=== PATIENT | female | born 1955 | race Caucasian/White ===

== ENCOUNTER → 2017-12-07 08:21 | Outpatient (CLI) | payer MEDICAID, SELFPAY ==
[2017-12-07 10:54] LABS: AST(SGOT) 19 U/L (15-37); Alanine Aminotransfer ALT/SGPT 32 U/L (13-56); Albumin, Serum 4.1 g/dL (3.2-5.0); Alkaline Phosphatase 92 U/L (45-117); Bilirubin, Direct 0.13 mg/dL (0.00-0.30); Cholesterol 202 mg/dL (200); Globulin 3.4 g/dL (2.2-4.2); High Density Lipoprotein 62 mg/dL; Protein, Total 7.5 g/dL (6.4-8.2); Triglycerides 102 mg/dL; Very Low Density Lipoprotein 20 mg/dL (5-40)
== END ==
PROVIDERS: Family Provider Family Medicine; PCP Family Medicine; Visit Provider Physician Assistant Medical
DX: E78.5 Hyperlipidemia, unspecified (principal); Z79.899 Other long term (current) drug therapy
CPT/HCPCS: 36415; 80061; 80076

== ENCOUNTER → 2017-12-20 16:29 | Outpatient (CLI) | payer MEDICAID, SELFPAY ==
[2017-12-20 17:56] LABS: Absolute Lymphocyte Count 2.59 X10^3/ul (0.83-4.51); Absolute Neutrophil Count 5.3 X10^3/uL (2.0-7.7); Basophil# 0.04 X10^3/uL; Basophil% 0.5 % (0-1); Eosinophil# 0.28 X10^3/uL; Eosinophils% 3.2 % (0-5); Hematocrit 38.7 % (37-47); Hemoglobin 12.4 g/dl (12.0-15.0); Lymphocyte # 2.59 X10^3/ul (4.0); Lymphocyte % 29.3 % (19-41); Mean Corpuscular Volume 93.7 fL (81-99); Mean Platelet Vol. 10.1 fl (6.2-12.0); Monocyte# 0.67 X10^3/uL; Monocyte% 7.6 % (0-10); Neutrophil # 5.26 X10^3/uL (2.7-7.7); Neutrophil % 59.3 % (47-70); Platelet Count 248 K/mm3 (150-450); RBC Distribution Width CV 13.9 % (11.6-14.6); RBC Distribution Width SD 47.7 fl (35.1-43.9); Red Blood Count 4.13 M/mm3 (4.2-5.4); White Blood Count 8.9 K/mm3 (4.4-11.0)
[2017-12-20 17:57] LABS: POSITIVE COUNT NO; POSITIVE DIFFERENTIAL NO; POSITIVE MORPHOLOGY NO
[2017-12-20 18:46] LABS: Hemoglobin A1c 5.7 % (4.2-6.3)
[2017-12-20 19:12] LABS: Anion Gap 8 (5-15); BUN 13 mg/dL (7-18); BUN/Creat Ratio 16.5 RATIO (10-20); Chloride 108 mmol/L (98-107); Creatinine, Serum 0.79 mg/dL (0.55-1.02); EST Glomerular Filtration Rate 79 mL/min (>60); Est Glom Filt Rate - Afr Amer 95 mL/min (>60); Glucose 97 mg/dL (74-106); Potassium 4.3 mmol/L (3.5-5.1); Sodium Level 142 mmol/L (136-145); Vitamin D,25 Hydroxy 25.2 ng/mL (19.95-100.01)
== END ==
PROVIDERS: Family Provider Family Medicine; PCP Family Medicine; Visit Provider Family Medicine
DX: I10 Essential (primary) hypertension (principal); R73.01 Impaired fasting glucose; E55.9 Vitamin D deficiency, unspecified
CPT/HCPCS: 36415; 80048; 82306; 83036; 84443; 85025

== ENCOUNTER → 2018-08-11 08:49 | Outpatient (CLI) | payer MEDICAID, SELFPAY ==
--- NOTE | 2018-08-11 09:03 | BI_ITS ---
MAMMOGRAPHY - BILATERAL SCREENING 3-D RICHARD SYNTHESIS REASON FOR EXAM: Female, 63 years old. Bilateral Screening 3-D tomosynthesis PERTINENT HISTORY: Remote breast aspirations. 10 pound loss. No significant family history given. TECHNIQUE: 2-D mammograms and 3-D Richard synthesis of the breast (s) were performed. CAD was performed. COMPARISON: 08/19/2014, 03/08/2010. FINDINGS: The breast composition is for extremely dense which lowers the sensitivity of mammography. Scattered benign appearing calcifications are again seen. No dense spiculated dominant masses or suspicious microcalcification cluster are identified. No architectural distortion, asymmetric density, adenopathy, skin thickening or nipple retraction identified. There has been no significant change since the most recent prior study. BI/SCREENING MAMM (CAD), BILAT IMPRESSION: No mammographic sign of malignancy. Routine yearly mammograms recommended. ASSESSMENT CATEGORY: BIRADS Category 2: Benign. A letter regarding these results will be sent to the patient by the facility within 30 days. FOLLOW UP RECOMMENDATION: Yearly follow up mammogram recommended. (A) Negative mammographic results should not deter biopsy as a palpable lesion if present should be followed on clinical grounds and biopsy performed if clinically persistent for 3 months or increasing size. Approximately 10% of breast cancers are not detected by mammography. A normal mammogram should not delay biopsy of a clinically suspicious abnormality. Dense breast tissue mainstream neoplasm. Electronically Signed: Jonnie Rey, at 18:57 EDT Tel , Service support ,
== END ==
PROVIDERS: Family Provider Family Medicine; PCP Family Medicine; Visit Provider Family Medicine
DX: Z12.31 Encounter for screening mammogram for malignant neoplasm of breast (principal)
CPT/HCPCS: 77063; 77067

== ENCOUNTER 2018-08-20 05:51 | Day surgery (SDC) | payer MEDICAID, SELFPAY ==
--- NOTE | 2018-08-20 | COLBX_PTH ---
PATIENT: DAVIS YODER LOC: EN U#:[id number] AGE/SX: 63/F ROOM: RE08/20/[address]: Dr. Luis Luciano MD : 1955 BED: DIS: 08/20/2018 SPEC #: [id number] RECD: 08/20/18 14:25 STATUS: STEFFEN VALENTINA #: [id number] WENDY: 08/20/18 00:[address]: Luis Luciano DEPT: SURGICAL PATHOLOGY RECD BY: Jn Boston ENTERED: 08/20/18 14:25 SP TYPE: COLON BX OTHR DR: Dr. Ruben Ricks MD Tissues: Sigmoid colon biopsy Procedures: Surgery Specimen Level IV HEADER OPERATION: Colonoscopy (MAC) PRE-OP DIAGNOSIS: Screening TISSUE SUBMITTED: Sigmoid colon polyp MICROSCOPIC DIAGNOSIS Sigmoid colon polyp, biopsy: Tubular adenoma. AM:keena 08/21/18 MICROSCOPIC DESCRIPTION Slides are reviewed. GROSS DESCRIPTION Received in fixative is one container labeled with the patient's name and designated sigmoid colon polyp. The specimen consists of a piece of woods-pink polyp measuring 0.3 x 0.3 x 0.2 cm. The specimen is totally submitted in one cassette. / SJ:keena 08/20/18 TC:5 CPT: 02584
[2018-08-20 06:12] VITALS: BP 145/77; PULSE 65; RESP 16; TEMP 36.5; O2SAT 99; BMI 24.1
[2018-08-20 07:25] VITALS: BP 116/68; BP 145/77; PULSE 60; RESP 16; TEMP 36.4; O2SAT 100
--- NOTE | 2018-08-20 07:26 | OP.ENDO_ITS ---
Patient Name: Diana Gr Procedure Date: 08/20/2018 6:41 AM Date of : 1955 Age: 63 Procedure: Colonoscopy Indications: Screening for colorectal malignant neoplasm Providers: Luis Luciano MD Referring MD: Luis Luciano MD Medicines: See the Anesthesia note for documentation of the administered medications Patient Profile: Last Colonoscopy: none. The patient's first colonoscopy is today. Complications: No immediate complications. Procedure: Pre-Anesthesia Assessment: - Prior to the procedure, a History and Physical was performed, and patient medications and allergies were reviewed. The patient's tolerance of previous anesthesia was also reviewed. The risks and benefits of the procedure and the sedation options and risks were discussed with the patient. All questions were answered, and informed consent was obtained. Prior Anticoagulants: The patient has taken aspirin, last dose was 7 days prior to procedure. ASA Grade Assessment: III - A patient with severe systemic disease. After reviewing the risks and benefits, the patient was deemed in satisfactory condition to undergo the procedure. After I obtained informed consent, the scope was passed under direct vision. Throughout the procedure, the patient's blood pressure, pulse, and oxygen saturations were monitored continuously. The adult colonoscope was introduced through the anus and advanced to the cecum, identified by appendiceal orifice and ileocecal valve. The colonoscopy was performed without difficulty. The patient tolerated the procedure well. The quality of the bowel preparation was good. Scope In: 7:06:32 AM Scope Withdrawal Time 0 hours 8 minutes 46 seconds Scope Out: 7:20:40 AM Total Procedure Duration Time 0 hours 14 minutes 8 seconds Findings: The perianal and digital rectal examinations were normal. A 5 mm polyp was found in the sigmoid colon. The polyp was sessile. The polyp was removed with a hot snare. Resection and retrieval were complete. The exam was otherwise without abnormality. Impression: - One 5 mm polyp in the sigmoid colon, removed with a hot snare. Resected and retrieved. - The examination was otherwise normal. Recommendation: - Discharge patient to home. - Resume previous diet. - Continue present medications. - Await pathology results. - Repeat colonoscopy in 3 years for surveillance. - Return to my office in 1 week. Procedure Code(s): --- Professional --- 31076, Colonoscopy, flexible; with removal of tumor(s), polyp(s), or other lesion(s) by snare technique Diagnosis Code(s): --- Professional --- Z12.11, Encounter for screening for malignant neoplasm of colon D12.5, Benign neoplasm of sigmoid colon CPT copyright 2017 [employer]. All rights reserved. The codes documented in this report are preliminary and upon grocery worker review may be revised to meet current compliance requirements. MD Luis Donaldson MD 08/20/2018 7:25:32 AM This report has been signed electronically. Number of Addenda: 0 Note Initiated On: 08/20/2018 6:41 AM
--- NOTE | 2018-08-20 07:27 | HP.PCM_ITS ---
Problem List (1) Screen for colon cancer Status: Acute History of Present Illness Date of Admission: 08/20/18 The patient is a 63 year old F who presents for screening colonoscopy. Past Medical History Past Medical History (Chronic Problems): Chronic Problems (Last Reviewed 06/08/18 @ 09:16 by Luis Luciano MD) Arteriosclerotic heart disease (ASHD) (Chronic) PTCA of LAD February 2007 Hyperlipidemia (Chronic) Nicotine abuse (Chronic) Hypertension (Chronic) Atherosclerotic heart disease [place] coronary artery w/angina pectoris (Chronic) Presence of stent in coronary artery (Chronic) PTCA of LAD February 2007; alf use of drug (Chronic) Medical History: Medical History (Last Reviewed 08/20/18 @ 07:26 by Luis Luciano MD) Arteriosclerotic heart disease (ASHD) (Chronic) I25.10 PTCA of LAD February 2007 H/O: hysterectomy (Resolved) Z90.710 Hyperlipidemia (Chronic) E78.5 Hypertension (Chronic) I10 Atherosclerotic heart disease [place] coronary artery w/angina pectoris (Chronic) I25.119 Allergies cortisone Adverse Reaction (Severe, Verified 07/13/18 08:38) Rash simvastatin Adverse Reaction (Severe, Verified 07/13/18 08:38) Myalgias Influenza Virus Vaccines Adverse Reaction (Verified 07/13/18 08:38) Nausea Home Medications: Ambulatory Orders Medication Instructions Recorded Aspirin [Aspirin, Baby] 81 mg PO DAILY@0800 #90 tab.chew 01/15/14 Sertraline HCl [Zoloft] 100 mg PO DAILY 07/21/16 Lisinopril [Zestril] 20 mg PO DAILY 02/19/17 traZODone [Desyrel] 50 mg PO QHS 02/19/17 cyanocobalamin (vit B-12) 500 mcg 500 mcg PO QDAY 01/29/18 tablet lamotrigine 25 mg tablet 25 - 50 mg PO QDAY tab 01/29/18 nitroglycerin 0.4 mg sublingual 0.4 mg SUBLINGUAL Q5M PRN 01/29/18 tablet omeprazole 20 mg capsule,delayed 20 mg PO QDAY 01/29/18 release cholecalciferol (vitamin D3) 1,000 5,000 unit PO QDAY tab 06/08/18 unit tablet atorvastatin 80 mg tablet 80 mg PO QDAY #90 tab 06/14/18 Surgical History: Surgical History (Last Reviewed 08/20/18 @ 07:26 by Luis Luciano MD) cataract surgery (Resolved) Hx of sinus surgery (Resolved) Z98.890 Hx of rotator cuff surgery (Resolved) Z98.890 right History of appendectomy (Resolved) Z90.49 Presence of stent in coronary artery (Chronic) Z95.5 PTCA of LAD February 2007; History of bilateral hip replacements Z96.643 Surgical History: adenoidectomy, appendectomy, hysterectomy Smoking Status: Current every day smoker Tobacco Use: Cigarettes - *Family History Maternal Family History: Family History (Last Updated 06/19/18 @ 08:40 by Neri Cantu) Mother CAD (coronary artery disease) Brother CAD (coronary artery disease) Father Cancer Other CVA (cerebral vascular accident) Heart disease Hypertension History Items: - - Noncontributory Review of Systems Cardiovascular: Denies: Chest Pain, Chest Pressure, Chest Tightness, Palpitations Respiratory: Denies: Cough, Hemoptysis, Shortness of breath at rest, Shortness of breath upon exertion, Wheezing Gastrointestinal: Denies: Abdominal Pain, Constipation, Diarrhea, Hematemesis, Nausea, Melena, Vomiting VTE Information - Inpt Only VTE Present on Admission: No VTE Mechan Device Prophylaxis: None VTE Pharm Prophylaxis ordered?: No Reason prophylaxis not ordered:: Treatment Not Indicated Patient Problems: Active and Suspected Problems (Last Reviewed 06/08/18 @ 09:16 by Luis Luciano MD) Screen for colon cancer (Acute) - Physical Exam Lungs: Clear to auscultation Cardiovascular: Regular rate, Regular Rhythm, No murmurs Abdomen: Bowel Sounds Present, Soft, Non Tender, Non-Distended Vital Signs Temp Pulse Resp BP Pulse Ox 97.7 F L 65 16 145/77 H 99 08/20/18 06:12 08/20/18 06:12 08/20/18 06:12 08/20/18 06:12 08/20/18 06:12 Oxygen Delivery Method Room Air Weight: 136 lb 7.458 oz Body Mass Index (BMI) 24.1 Assessment/Plan All Active Problems (Last Updated 06/19/18 @ 08:39 by Neri Cantu) Screen for colon cancer (Acute) Sinusitis, acute (Acute) cataract surgery (Resolved) Hx of sinus surgery (Resolved) Hx of rotator cuff surgery (Resolved) H/O: hysterectomy (Resolved) History of appendectomy (Resolved) My plan will be to perform a colonoscopy.
[2018-08-20 07:30] VITALS: BP 119/70; BP 145/77; PULSE 58; RESP 16; O2SAT 100
[2018-08-20 07:35] VITALS: BP 103/64; BP 145/77; PULSE 56; RESP 16; O2SAT 100
[2018-08-20 07:40] VITALS: BP 115/70; BP 145/77; PULSE 56; RESP 16; TEMP 36.7; O2SAT 100
[2018-08-20 07:50] VITALS: BP 145/77
== END 2018-08-20 07:59 | disposition home or self-care (01) ==
LOC: EN 05:52 → AC 05:53
PROVIDERS: Family Provider Family Medicine; PCP Family Medicine; Visit Provider Surgery
PROC: 0DJD8ZZ Inspection of Lower Intestinal Tract, Via Natural or Artificial Opening Endoscopic (ICD-10-PCS; CPT 45378; principal; 2018-08-20 06:55)
DX: Z12.11 Encounter for screening for malignant neoplasm of colon (principal); D12.5 Benign neoplasm of sigmoid colon; K21.9 Gastro-esophageal reflux disease without esophagitis; F41.9 Anxiety disorder, unspecified; F32.9 Major depressive disorder, single episode, unspecified; I25.10 Atherosclerotic heart disease of native coronary artery without angina pectoris; E78.5 Hyperlipidemia, unspecified; I10 Essential (primary) hypertension; F17.210 Nicotine dependence, cigarettes, uncomplicated; Z95.5 Presence of coronary angioplasty implant and graft; Z79.82 Long term (current) use of aspirin; Z79.899 Other long term (current) drug therapy
CPT/HCPCS: 45380; 88305; J7120; J1610

== ENCOUNTER → 2018-12-13 09:02 | Outpatient (CLI) | payer MEDICAID, SELFPAY ==
[2018-11-22 09:03] VITALS: BMI 23.7
[2018-12-13 10:54] LABS: AST(SGOT) 17 U/L (15-37); Alanine Aminotransfer ALT/SGPT 21 U/L (13-56); Albumin, Serum 4.2 g/dL (3.2-5.0); Alkaline Phosphatase 91 U/L (45-117); Bilirubin, Direct 0.12 mg/dL (0.00-0.30); Cholesterol 202 mg/dL (200); Globulin 3.1 g/dL (2.2-4.2); High Density Lipoprotein 90 mg/dL; Protein, Total 7.3 g/dL (6.4-8.2); Triglycerides 51 mg/dL; Very Low Density Lipoprotein 10 mg/dL (5-40)
== END ==
PROVIDERS: Family Provider Family Medicine; PCP Family Medicine; Referring Provider Internal Medicine Cardiovascular Disease; Visit Provider Internal Medicine Cardiovascular Disease
DX: E78.00 Pure hypercholesterolemia, unspecified (principal)
CPT/HCPCS: 36415; 80061; 80076

== ENCOUNTER → 2019-01-02 08:48 | Outpatient (CLI) | payer MEDICAID, SELFPAY ==
[2018-12-27 08:55] VITALS: BMI 23.7
--- NOTE | 2019-01-02 08:52 | RAD_ITS ---
STUDY: X-RAY CHEST REASON FOR EXAM: Female, 63 years old. Cough. TECHNIQUE: Frontal and lateral views of the chest. COMPARISON: 07/21/2016. FINDINGS: The lungs are clear and expanded. There is no demonstrated pleural abnormality. Normal size heart. Normal mediastinum and theo. Normal visualized pulmonary arteries. Normal visualized aortic arch and descending thoracic aorta. Normal visualized thoracic spine. Normal visualized ribs, clavicles, and shoulders. There is no demonstrated abnormality of the visualized soft tissue structures of the upper abdomen. RAD/Chest PA and Lateral IMPRESSION: Normal x-ray examination of the chest. Electronically Signed: Ovidio Arango MD at 18:53 EST , Service support ,
== END ==
PROVIDERS: Family Provider Family Medicine; PCP Family Medicine; Referring Provider Family Medicine; Visit Provider Family Medicine
DX: J20.9 Acute bronchitis, unspecified (principal)
CPT/HCPCS: 71046

== ENCOUNTER → 2019-04-22 | Outpatient (CLI) | payer MEDICAID, SELFPAY ==
[2018-12-27 08:55] VITALS: BMI 23.7
[2019-04-22 12:14] LABS: Absolute Lymphocyte Count 1.23 X10^3/ul (0.83-4.51); Absolute Neutrophil Count 5.8 X10^3/uL (2.0-7.7); Basophil# 0.04 X10^3/uL; Basophil% 0.5 % (0-1); Eosinophil# 0.17 X10^3/uL; Eosinophils% 2.1 % (0-5); Hematocrit 41.5 % (37-47); Hemoglobin 13.4 g/dl (12.0-15.0); Lymphocyte # 1.23 X10^3/ul (4.0); Lymphocyte % 15.4 % (19-41); Mean Corp Hgb Conc 32.3 g/gl (32-36); Mean Corpuscular Hgb 30.2 pg (27.0-32.0); Mean Corpuscular Volume 93.7 fL (81-99); Mean Platelet Vol. 9.3 fl (6.2-12.0); Monocyte# 0.73 X10^3/uL; Monocyte% 9.2 % (0-10); Neutrophil # 5.79 X10^3/uL (2.7-7.7); Neutrophil % 72.7 % (47-70); Platelet Count 225 K/mm3 (150-450); RBC Distribution Width CV 13.9 % (11.6-14.6); RBC Distribution Width SD 47.7 fl (35.1-43.9); Red Blood Count 4.43 M/mm3 (4.2-5.4)
[2019-04-22 12:20] LABS: International Normalized Ratio 0.9; Prothrombin Time (Protime)PT. 12.4 SECONDS (11.7-14.9)
[2019-04-22 12:21] LABS: Partial Thromboplast Time 29.7 Seconds (24.1-36.2)
[2019-04-22 12:22] LABS: POSITIVE COUNT NO; POSITIVE DIFFERENTIAL NO; POSITIVE MORPHOLOGY NO
[2019-04-22 13:02] LABS: ALB/GLOB Ratio 1.2 RATIO (0.9-2.4); AST(SGOT) 29 U/L (15-37); Alanine Aminotransfer ALT/SGPT 26 U/L (13-56); Albumin, Serum 4.2 g/dL (3.2-5.0); Alkaline Phosphatase 156 U/L (45-117); Anion Gap 12 (5-15); BUN 15 mg/dL (7-18); BUN/Creat Ratio 20.4 RATIO (10-20); Calcium,Total 9.2 mg/dL (8.5-10.1); Chloride 101 mmol/L (98-107); Creatinine, Serum 0.74 mg/dL (0.55-1.02); EST Glomerular Filtration Rate 85 mL/min (>60); Est Glom Filt Rate - Afr Amer 103 mL/min (>60); Globulin 3.6 g/dL (2.2-4.2); Glucose 88 mg/dL (74-106); Potassium 4.2 mmol/L (3.5-5.1); Protein, Total 7.8 g/dL (6.4-8.2); Sodium Level 139 mmol/L (136-145); T4 Free Direct 0.79 ng/dL (0.76-1.46); Thyroid Stim Hormone (TSH) 0.83 uIU/mL (0.358-3.74)
[2019-04-25 15:36] LABS: Vitamin B1, Thiamine 112.4 nmol/L (66.5-200.0)
== END | disposition home or self-care (01) ==
LOC: BFHLAB 09:40
PROVIDERS: Family Provider Family Medicine; PCP Family Medicine; Visit Provider Family Medicine
DX: F32.9 Major depressive disorder, single episode, unspecified (principal); F10.10 Alcohol abuse, uncomplicated
CPT/HCPCS: 80053; 84425; 84439; 84443; 85025; 85610; 85730

== ENCOUNTER 2019-05-13 14:10 | Inpatient (IN) | payer MEDICAID, SELFPAY ==
[2018-12-27 08:55] VITALS: BMI 23.7
[2019-05-13 14:13] VITALS: BP 157/84; PULSE 79; RESP 16; TEMP 36.7; O2SAT 97; BMI 23.9
[2019-05-13 15:03] LABS: Absolute Lymphocyte Count 1.75 X10^3/ul (0.83-4.51); Absolute Neutrophil Count 5.4 X10^3/uL (2.0-7.7); Basophil# 0.02 X10^3/uL; Basophil% 0.2 % (0-1); Eosinophils% 1.2 % (0-5); Hematocrit 39.4 % (37-47); Hemoglobin 13.3 g/dl (12.0-15.0); Lymphocyte # 1.75 X10^3/ul (4.0); Lymphocyte % 21.1 % (19-41); Mean Corp Hgb Conc 33.8 g/gl (32-36); Mean Corpuscular Hgb 30.8 pg (27.0-32.0); Mean Corpuscular Volume 91.2 fL (81-99); Mean Platelet Vol. 9.1 fl (6.2-12.0); Monocyte# 1.06 X10^3/uL; Monocyte% 12.8 % (0-10); Neutrophil # 5.38 X10^3/uL (2.7-7.7); Neutrophil % 64.7 % (47-70); Platelet Count 243 K/mm3 (150-450); RBC Distribution Width SD 46.7 fl (35.1-43.9); Red Blood Count 4.32 M/mm3 (4.2-5.4); White Blood Count 8.3 K/mm3 (4.4-11.0)
[2019-05-13 15:04] LABS: POSITIVE COUNT NO; POSITIVE DIFFERENTIAL NO; POSITIVE MORPHOLOGY NO
--- NOTE | 2019-05-13 15:16 | ED.RN ---
TYPICALLY DRINKS 10-12 EDDY LITES PER DAY
[2019-05-13 15:18] LABS: ALB/GLOB Ratio 1.1 RATIO (0.9-2.4); AST(SGOT) 24 U/L (15-37); Alanine Aminotransfer ALT/SGPT 21 U/L (13-56); Albumin, Serum 4.1 g/dL (3.2-5.0); Alkaline Phosphatase 121 U/L (45-117); Anion Gap 6 (5-15); BUN 6 mg/dL (7-18); Calcium,Total 9.4 mg/dL (8.5-10.1); Chloride 107 mmol/L (98-107); Creatinine, Serum 0.67 mg/dL (0.55-1.02); EST Glomerular Filtration Rate 95 mL/min (>60); Est Glom Filt Rate - Afr Amer 115 mL/min (>60); Estimated Creatinine Clearance 72.94 ml/min; Globulin 3.6 g/dL (2.2-4.2); Glucose 100 mg/dL (74-106); Lipase 141 U/L (73-393); Potassium 3.6 mmol/L (3.5-5.1); Protein, Total 7.7 g/dL (6.4-8.2); Sodium Level 138 mmol/L (136-145)
--- NOTE | 2019-05-13 15:19 | ED.VIS.GEN ---
History of Present Illness Chief Complaint: Substance Abuse Informant: Patient Current Severity: Moderate Maximum Severity: Moderate Narrative: Patient presents with anxiety, restlessness, sweats tremors and agitation secondary to decreased alcohol. Apparently she is accepted to a rehab facility, however she needs detox. Last drink was yesterday. She drinks 15 beers a day Past Medical History - Allergies and Home Meds Allergies/Adverse Reactions: Allergies cortisone Adverse Reaction (Severe, Verified 05/13/19 14:15) Rash simvastatin Adverse Reaction (Severe, Verified 05/13/19 14:15) Myalgias Influenza Virus Vaccines Adverse Reaction (Verified 05/13/19 14:15) Nausea Primary Care Physician: Ruben Ricks MD [Primary Care Provider] - 3-5 Days Past Medical History: - Surgical History: adenoidectomy, appendectomy, hysterectomy Smoking Status: Current every day smoker Alcohol: Heavy - Family History Maternal Family History: Family History (Last Reviewed 12/27/18 @ 08:45 by Susan Marques) Mother CAD (coronary artery disease) Brother CAD (coronary artery disease) Father Cancer Other CVA (cerebral vascular accident) Heart disease Hypertension Family History: Reports: - - Noncontributory Review of Systems ROS: - Reviewed General: Denies: Chills, Fever, Sweats Eyes: Denies: Visual changes - bilaterally, Diplopia ENT: Denies: Rhinorrhea, Sore throat Cardiovascular: Reports: Palpitations, Heart racing. Denies: Chest pain Respiratory: Denies: Dyspnea, Cough, Dyspnea on exertion Gastrointestinal: Reports: Nausea. Denies: Abdominal pain, Vomiting, Diarrhea, Melena, Hematochezia Genitourinary: Denies: Dysuria, Hematuria, Frequency Musculoskeletal: Denies: Back pain, Extremity Pain Skin: Denies: Rash, Wounds Neurological: Denies: Headache, Weakness, Numbness Psych: Reports: Anxiety. Denies: Suicidal thoughts Physical Exam Vital Signs/Narrative: Vital Signs Temp Pulse Resp BP Pulse Ox 05/13/19 14:13 98.1 F 79 16 157/84 H 97 Inital Vital Signs reviewed: Yes General: Well nourished, Well developed Head: Normocephalic Eyes: Perrl ENT: Moist mucous membranes Cardiovascular: Regular rate Respiratory: No distress Abdomen: Soft Extremities: Nontender, No edema Skin: Normal color Neurological: Alert, Oriented x3, Normal Strength Psychological: Normal affect Diagnostic/Tx/Re-eval - Medical Decision Making Patient has a CIWA score of 22. She will be admitted to detox. ED Disposition - Plan for ED Patient: Instructions: Alcohol Withdrawal Referrals: Ruben Ricks MD [Primary Care Provider] -
[2019-05-13 15:34] LABS: Bacteria 0 SEEN /hpf (None Seen); Mucous, Urine 0 SEEN /hpf (<or=2+); Red Blood Cells-Urine 0 SEEN /hpf (0-5); Squamous Epithelial Cells - UA 0 SEEN /hpf (5-10); White Blood Cells 0 SEEN /hpf (0-5)
[2019-05-13 15:34] LABS: Alcohol, Blood (Medical)-Serum < 3.0 mg/dL
[2019-05-13 15:35] LABS: Color, Urine Straw (Yellow); Glucose, Dipstick Normal (Normal); Ketone-Dipstick Negative (Negative); Leukocyte Esterase-Dipstick 25 /ul (Negative); Nitrite-Dipstick Negative (Negative); Occult Blood-Urine 10 /ul (Negative); Protein-Dipstick Negative (Negative); Specific Gravity, Urine 1.005 (1.002-1.030); Urine Bilirubin Dipstick Negative (Negative); Urine Clarity Clear (Clear); Urine Urobilinogen Normal (Normal); Urine pH 6.5 (5.0 - 8.0)
[2019-05-13 15:48] VITALS: BMI 23.9
[2019-05-13 15:52] VITALS: BMI 23.5
--- NOTE | 2019-05-13 15:55 | PCM.HP.STD ---
Problem List (1) Acute alcohol withdrawal Status: Acute (2) Alcohol abuse Status: Chronic (3) Arteriosclerotic heart disease (ASHD) Status: Chronic Comment: PTCA of LAD February 2007 (4) Hyperlipidemia Status: Chronic Qualifiers: Hyperlipidemia type: pure hypercholesterolemia Qualified Code(s): E78.00 - Pure hypercholesterolemia, unspecified; E78.0 - Pure hypercholesterolemia (5) Hypertension Status: Chronic Qualifiers: Hypertension type: essential hypertension Qualified Code(s): I10 - Essential (primary) hypertension (6) Presence of stent in coronary artery Status: Chronic Comment: PTCA of LAD February 2007; History of Present Illness Date of Admission: 05/13/19 Chief Complaint: Acute alcohol withdrawal requesting admission for medical stabilization. The patient is a 63 year old F with past medical history as mentioned above presented to the emergency room requesting admission for acute alcohol withdrawal for medical stabilization. Patient has been drinking alcohol daily, she drinks around 15-16 beers daily and she underwent detox program in the past but she relapsed. Her main presenting symptoms today were nausea without vomiting, restlessness associated with hand tremors with anxiety and without aggravating or relieving factors. According to the ER physician, her CIWA score was 22 upon arrival. She denied abdominal pain, constipation or diarrhea. She denies chest pain or shortness of breath. She had a history of CAD status post stents and she has been on aspirin, statins and lisinopril and she saw Dr. Truong for recently and she has been stable. She has history of hypertension which seems to be under control with lisinopril. She has history of hyperlipidemia and she has been on statins. In the emergency department, her vital signs were stable. Her routine blood work was unremarkable. LFT and lipase were normal. Blood alcohol level was less than 3. Urine drug screen is pending. She is being admitted for acute alcohol withdrawal for medical stabilization. Past Medical History Past Medical History (Chronic Problems): Chronic Problems (Last Updated 05/13/19 @ 15:17 by Mary Sharp MD) Alcohol abuse (Chronic) Arteriosclerotic heart disease (ASHD) (Chronic) PTCA of LAD February 2007 Hyperlipidemia (Chronic) Nicotine abuse (Chronic) Hypertension (Chronic) Atherosclerotic heart disease [place] coronary artery w/angina pectoris (Chronic) Presence of stent in coronary artery (Chronic) PTCA of LAD February 2007; intermediate use of drug (Chronic) Medical History: Medical History (Last Updated 05/13/19 @ 15:17 by Mary Sharp MD) Arteriosclerotic heart disease (ASHD) (Chronic) I25.10 PTCA of LAD February 2007 Hyperlipidemia (Chronic) E78.5 Hypertension (Chronic) I10 Atherosclerotic heart disease [place] coronary artery w/angina pectoris (Chronic) I25.119 H/O: hysterectomy (Inactive) Z90.710 Allergies cortisone Adverse Reaction (Severe, Verified 05/13/19 14:15) Rash simvastatin Adverse Reaction (Verified 05/13/19 15:48) Myalgias Home Medications: Ambulatory Orders Medication Instructions Recorded Aspirin [Aspirin, Baby] 81 mg PO DAILY@0800 #90 tab.chew 01/15/14 cyanocobalamin (vit B-12) 500 mcg 500 mcg PO DAILY 01/29/18 tablet lisinopril 20 mg tablet 20 mg PO DAILY #90 tab 05/02/19 Atorvastatin Calcium 80 mg PO QHS 05/13/19 Omeprazole 20 mg PO DAILY 05/13/19 Surgical History: Surgical History (Last Updated 05/13/19 @ 15:17 by Mary Sharp MD) Presence of stent in coronary artery (Chronic) Z95.5 PTCA of LAD February 2007; History of bilateral hip replacements Z96.643 History of appendectomy (Inactive) Z90.49 Hx of rotator cuff surgery (Inactive) Z98.890 right cataract surgery (Inactive) Surgical History: adenoidectomy, appendectomy, hysterectomy, total hip arthroplasty Psychiatric History: No pertinent psych hx 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 Denies: Chills, Fever, Weakness, Fatigue Eyes: Denies: Blurred vision, Double vision, Drainage, Redness HEENT: Denies: Difficulty Hearing, Ear Pain, Eye Pain, Nasal Congestion, Sore Throat Cardiovascular: Denies: Chest Pain, Claudication, Chest Pressure, Heaviness, Light Headedness, Palpitations, Syncope Respiratory: Denies: Cough, Pleuritic Pain, Shortness of Breath, Sputum production, Wheezing Gastrointestinal: Reports: Nausea. Denies: Abdominal Pain, Constipation, Diarrhea, Vomiting Genitourinary: Denies: Dysuria, Frequency, Hematuria Musculoskeletal: Denies: Arm Pain, Back Pain, Foot Pain Skin: Denies: Dryness, Rash Neurological: Reports: Tremor. Denies: Balance problems, Double vision, Change in Speech, Slurred speech, Confusion, Focal weakness, Headaches, Incoordination Psychiatric: Reports: Anxiety. Denies: Depression Endocrine: Denies: Change in Body Habitus, Polydipsia, Polyuria VTE Information - Inpt Only VTE Present on Admission: No VTE Mechan Device Prophylaxis: None VTE Pharm Prophylaxis ordered?: Yes Patient Problems: Active and Suspected Problems (Last Updated 05/13/19 @ 15:17 by Mary Sharp MD) Acute alcohol withdrawal (Acute) - Physical Exam General: Alert, Oriented x3, Cooperative, No apparent distress HEENT: Atraumatic, PERRLA, EOMI, Normocephalic Oral: Moist Mucosa, No Gingival or Mucosal Lesions/ Ulcerations Neck: Supple, No JVD, Negative Carotid Bruits, Trachea Midline, Thyroid Normal Size and Texture Lungs: Clear to auscultation, Normal air movement, No rhonchi, No wheeze, No rales, Diminished Cardiovascular: Regular rate, Regular Rhythm, Normal S1, Normal S2, No murmurs, PMI Normal Abdomen: Bowel Sounds Present, Soft, Non Tender, Non-Distended, No Hepato-splenomegaly Extremities: No clubbing, No cyanosis, No edema Skin: No rashes, No breakdown Lymphatic: No Cervical, Supraclavicular, or Inguinal Adenopathy Neurological: Cranial nerves II-XII grossly intact, Motor Exam 5/5 strength throughout Psych/Mental Status: Normal Affect, Appropriate, Alert and oriented to time, place, person, mood and affect Vital Signs Temp Pulse Resp BP Pulse Ox 98.1 F 79 16 157/84 H 97 05/13/19 14:13 05/13/19 14:13 05/13/19 14:13 05/13/19 14:13 05/13/19 14:13 Oxygen Delivery Method Room Air Weight: 135 lb Body Mass Index (BMI) 23.9 Laboratory Tests Past 24 Hrs 05/13/19 05/13/19 05/13/19 14:54 14:54 14:54 WBC 8.3 RBC 4.32 Hgb 13.3 Hct 39.4 MCV 91.2 MCH 30.8 MCHC 33.8 RDW 14.0 RDW Differential 46.7 H Plt Count 243 MPV 9.1 Immature Gran % (Auto) 0.000 Neut % (Auto) 64.7 Lymph % (Auto) 21.1 [place] % (Auto) 12.8 H Eos % (Auto) 1.2 Baso % (Auto) 0.2 Absolute Neuts (auto) 5.4 Absolute Lymphs (auto) 1.75 Total Counted Not Reportable Sodium 138 Potassium 3.6 Chloride 107 Carbon Dioxide 25.0 Anion Gap 6 BUN 6 L Creatinine 0.67 Estim Creat Clear Calc 72.94 Est GFR (MDRD) Af Amer 115 Est GFR (MDRD) Non-Af 95 BUN/Creatinine Ratio 9.0 L Glucose 100 Calcium 9.4 Total Bilirubin 0.50 AST 24 ALT 21 Alkaline Phosphatase 121 H Total Protein 7.7 Albumin 4.1 Globulin 3.6 Albumin/Globulin Ratio 1.1 Lipase 141 Urine Color Urine Clarity Urine pH Ur Specific [place] Urine Protein Urine Glucose (UA) Urine Ketones Urine Occult Blood Urine Nitrite Urine Bilirubin Urine Urobilinogen Ur Leukocyte Esterase Urine RBC Urine WBC Ur Squamous Epith Cells Urine Bacteria Urine Mucus Urine Opiates Screen Urine Methadone Screen Ur Barbiturates Screen Ur Phencyclidine Scrn Ur Amphetamines Screen U Methamphetamin-MDMA U Benzodiazepines Scrn Urine Cocaine Screen U Cannabinoids Screen Ur Drug Screen Comment Ethyl Alcohol < 3.0 05/13/19 05/13/19 15:20 15:20 WBC RBC Hgb Hct MCV MCH MCHC RDW RDW Differential Plt Count MPV Immature Gran % (Auto) Neut % (Auto) Lymph % (Auto) [place] % (Auto) Eos % (Auto) Baso % (Auto) Absolute Neuts (auto) Absolute Lymphs (auto) Total Counted Sodium Potassium Chloride Carbon Dioxide Anion Gap BUN Creatinine Estim Creat Clear Calc Est GFR (MDRD) Af Amer Est GFR (MDRD) Non-Af BUN/Creatinine Ratio Glucose Calcium Total Bilirubin AST ALT Alkaline Phosphatase Total Protein Albumin Globulin Albumin/Globulin Ratio Lipase Urine Color Straw Urine Clarity Clear Urine pH 6.5 Ur Specific [place] 1.005 Urine Protein Negative Urine Glucose (UA) Normal Urine Ketones Negative Urine Occult Blood 10 H Urine Nitrite Negative Urine Bilirubin Negative Urine Urobilinogen Normal Ur Leukocyte Esterase 25 H Urine RBC Pending Urine WBC Pending Ur Squamous Epith Cells Pending Urine Bacteria Pending Urine Mucus Pending Urine Opiates Screen Pending Urine Methadone Screen Pending Ur Barbiturates Screen Pending Ur Phencyclidine Scrn Pending Ur Amphetamines Screen Pending U Methamphetamin-MDMA Pending U Benzodiazepines Scrn Pending Urine Cocaine Screen Pending U Cannabinoids Screen Pending Ur Drug Screen Comment Ethyl Alcohol Assessment/Plan All Active Problems (Last Updated 05/13/19 @ 15:17 by Mary Sharp MD) Acute alcohol withdrawal (Acute) This is a 63 years old female patient presented to the emergency room requesting admission for acute alcohol withdrawal for medical stabilization. #1 acute alcohol withdrawal: Patient is a heavy drinker, drinks 15-16 beers daily. Blood alcohol level was less than 3. She denied use of other recreational drugs. Her vital signs are stable. Upon arrival to ER, she was score was 22. Plan: Admit to [facility] floor, telemetry monitoring, initiate [facility] protocol with tapering course of Ativan, folic acid and thiamine supplement, multivitamins, as needed Bentyl, hydroxyzine, ibuprofen, as needed Tylenol, methocarbamol and as needed Zofran, urine drug screen, notify [facility] program. Patient mentioned that she has a rehabilitation place ready for her to go and she has a bed available at a facility in [facility] this coming at 10 AM and she wants to go early morning. #2 CAD status post stents: Stable, no acute issues. Continue aspirin, statins and lisinopril. #3 hypertension: Blood pressure stable, continue lisinopril. #4 hyperlipidemia: Continue statins. #5 alcohol abuse: Plan as above. #6 tobacco abuse: NicoDerm patch if desired. #7 DVT prophylaxis: Subcu Lovenox. This note was generated with [employer] dictation software. It may contain incorrect words, spelling, and punctuation that were not noted in checking the note before signing. Code Visit Inpatient E&M: 08124 Init Hosp L2
[2019-05-13 16:39] VITALS: BP 181/70; PULSE 57; RESP 18; TEMP 36.8; O2SAT 100
[2019-05-13 16:41] VITALS: RESP 16
[2019-05-13 16:56] LABS: Amphetamine Urine VISTA NEGATIVE (<1000 ng/mL); Barbiturate Urine VISTA NEGATIVE (< 200 ng/mL); Benzodiazepine Urine VISTA NEGATIVE (< 200 ng/mL); Cocaine Urine VISTA NEGATIVE (< 300 ng/mL); Ecstacy Urine VISTA NEGATIVE (< 500 ng/mL); Methadone Urine VISTA NEGATIVE (< 300 ng/mL); PCP Urine VISTA NEGATIVE (< 25 ng/mL); THC Urine VISTA NEGATIVE (< 50 ng/mL); Vista UDS pH Range 6
[2019-05-13] MEDS: Dicyclomine 10 MG Capsule 20 MG PO (17:15)
[2019-05-13] MEDS: LORazepam 1 MG Tablet PO ×2 (17:15→21:20)
[2019-05-13] MEDS: Ibuprofen 600 MG Tablet PO (17:15)
[2019-05-13] MEDS: Ondansetron ODT 4 MG Tablet PO (17:15)
[2019-05-13 17:21] VITALS: PULSE 61
[2019-05-13 20:02] VITALS: PULSE 60
[2019-05-13 20:20] VITALS: BP 142/71; PULSE 57; RESP 20; TEMP 36.6
[2019-05-13] MEDS: hydrOXYzine PAM 25 MG Capsule 50 MG PO (20:34)
[2019-05-13] MEDS: Methocarbamol 750 MG Tablet PO (20:34)
[2019-05-13] MEDS: traZODone 50 MG Tablet PO (21:20)
[2019-05-13] MEDS: Atorvastatin Calcium 80 MG Tablet PO (21:20)
[2019-05-14] VITALS (12 sets, daily range): BP systolic 94–163; BP diastolic 56–79; PULSE 56–72; RESP 14–18; TEMP 36.4–36.9
[2019-05-14] MEDS: LORazepam 1 MG Tablet PO ×5 (02:18→19:52)
[2019-05-14] MEDS: 0.9% NaCl Peripheral Flush Adult/Peds IV ×2 (02:18→21:56)
[2019-05-14] MEDS: Lisinopril 20 MG Tablet PO (06:10)
[2019-05-14] MEDS: Folic Acid 1 MG Tablet PO (09:31)
[2019-05-14] MEDS: Thiamine Hydrochloride 100 MG Tablet PO (09:31)
[2019-05-14] MEDS: Aspirin 81 MG TAB.CHEW PO (09:31)
[2019-05-14] MEDS: Pantoprazole Sodium 20 MG Tablet PO (09:31)
[2019-05-14] MEDS: Multivitamins,Therapeutic Tablet 1 TABLET PO (09:31)
[2019-05-14] MEDS: Enoxaparin 40 MG/0.4 ML Syringe SC (09:32)
--- NOTE | 2019-05-14 10:34 | PN_ITS ---
Patient Problems: Active and Suspected Problems (Last Updated 05/13/19 @ 15:17 by Mary Sharp MD) Acute alcohol withdrawal (Acute) Subjective: Feeling better. Still with tremor, headache 4 out of 10, restless legs, nausea. Vitals/I&O's: Vital Signs Temp Pulse Resp BP Pulse Ox 36.9 C 61 16 95/67 100 05/14/19 08:12 05/14/19 08:12 05/14/19 08:12 05/14/19 08:12 05/13/19 16:39 Oxygen Delivery Method Room Air Weight: 60.3 kg Body Mass Index (BMI) 23.5 Intake and Output for Last 24 Hours 05/12/19 05/13/19 05/14/19 23:59 23:59 23:59 Intake Total 1000 / 1000 Balance 1000 / 1000 General: Alert, No apparent distress HEENT: Atraumatic, Normocephalic Oral: Moist Mucosa, No Gingival or Mucosal Lesions/ Ulcerations Neck: No Nodes, Thyroid Normal Size and Texture Lungs: Clear to auscultation, Normal air movement, No rhonchi, No wheeze, No rales Cardiovascular: Regular rate, Regular Rhythm, Normal S1, Normal S2 Abdomen: Bowel Sounds Present, Soft, Non Tender, Non-Distended Extremities: No edema, No Calf Tenderness Psych/Mental Status: Normal Affect, Appropriate Laboratory Results 05/13/19 14:54: WBC 8.3, RBC 4.32, Hgb 13.3, Hct 39.4, MCV 91.2, MCH 30.8, MCHC 33.8, RDW 14.0, RDW Differential 46.7 H, Plt Count 243, MPV 9.1, Immature Gran % (Auto) 0.000, Neut % (Auto) 64.7, Lymph % (Auto) 21.1, Hale % (Auto) 12.8 H, Eos % (Auto) 1.2, Baso % (Auto) 0.2, Absolute Neuts (auto) 5.4, Absolute Lymphs (auto) 1.75, Total Counted Not Reportable 05/13/19 14:54: Sodium 138, Potassium 3.6, Chloride 107, Carbon Dioxide 25.0, Anion Gap 6, BUN 6 L, Creatinine 0.67, Estim Creat Clear Calc 72.94, Est GFR (MDRD) Af Amer 115, Est GFR (MDRD) Non-Af 95, BUN/Creatinine Ratio 9.0 L, Glucose 100, Calcium 9.4, Total Bilirubin 0.50, AST 24, ALT 21, Alkaline Phosphatase 121 H, Total Protein 7.7, Albumin 4.1, Globulin 3.6, Albumin/Globulin Ratio 1.1, Lipase 141 05/13/19 14:54: Ethyl Alcohol < 3.0 05/13/19 15:20: Urine Opiates Screen NEGATIVE, Urine Methadone Screen NEGATIVE, Ur Barbiturates Screen NEGATIVE, Ur Phencyclidine Scrn NEGATIVE, Ur Amphetamines Screen NEGATIVE, U Methamphetamin-MDMA NEGATIVE, U Benzodiazepines Scrn NEGATIVE, Urine Cocaine Screen NEGATIVE, U Cannabinoids Screen NEGATIVE, Ur Drug Screen Comment 05/13/19 15:20: Urine Color Straw, Urine Clarity Clear, Urine pH 6.5, Ur Specific [place] 1.005, Urine Protein Negative, Urine Glucose (UA) Normal, Urine Ketones Negative, Urine Occult Blood 10 H, Urine Nitrite Negative, Urine Bilirubin Negative, Urine Urobilinogen Normal, Ur Leukocyte Esterase 25 H, Urine RBC 0 SEEN, Urine WBC 0 SEEN, Ur Squamous Epith Cells 0 SEEN, Urine Bacteria 0 SEEN, Urine Mucus 0 SEEN Current Medications Acetaminophen (Tylenol) 500 mg PO Q4H PRN PRN PRN Reason: Temp > 100.4 F Aspirin (Aspirin, Baby) 81 mg PO DAILY@0800 [facility] Last Admin: 05/14/19 09:31 Dose: 81 mg Documented by: Atorvastatin Calcium (Lipitor) 80 mg PO QHS [facility] Last Admin: 05/13/19 21:20 Dose: 80 mg Documented by: Dicyclomine HCl (Bentyl) 20 mg PO Q6H PRN PRN PRN Reason: abdominal discomfort Last Admin: 05/13/19 17:15 Dose: 20 mg Documented by: Enoxaparin Sodium (Lovenox) 40 mg SC DAILY@1000 [facility] Last Admin: 05/14/19 09:32 Dose: 40 mg Documented by: [facility]) [facility] Stop: 05/16/19 08:01 Last Admin: 05/14/19 09:31 Dose: 1 mg Documented by: Hydroxyzine Pamoate (Vistaril Pamoate Capsule) 50 mg PO Q6H PRN PRN PRN Reason: Mild Anxiety (score 1/3) Last Admin: 05/13/19 20:34 Dose: 50 mg Documented by: Ibuprofen (Motrin) 600 mg PO Q8H PRN PRN PRN Reason: Mild-Moderate Pain (1-5/10) Last Admin: 05/13/19 17:15 Dose: 600 mg Documented by: Lisinopril (Zestril) 20 mg PO DAILY [facility] Last Admin: 05/14/19 06:10 Dose: 20 mg Documented by: Lorazepam (Ativan) 1 mg PO Q4H [facility]; Taper Stop: 05/16/19 21:59 Last Admin: 05/14/19 09:31 Dose: 1 mg Documented by: Methocarbamol (Methocarbamol) 750 mg PO Q6H PRN PRN PRN Reason: Muscle Aches Last Admin: 05/13/19 20:34 Dose: 750 mg Documented by: Multivit[facility] ([facility]itamin) [facility] Last Admin: 05/14/19 09:31 Dose: 1 tablet Documented by: Ondansetron HCl (Zofran Odt) 4 mg PO Q6H PRN PRN PRN Reason: NAUSEA Last Admin: 05/13/19 17:15 Dose: 4 mg Documented by: Pantoprazole Sodium (Protonix) 20 mg PO DAILY [facility] Last Admin: 05/14/19 09:31 Dose: 20 mg Documented by: Sodium Chloride () 10 - 40 ml IV UD PRN PRN Reason: SALINE FLUSH Last Admin: 05/14/19 02:18 Dose: 10 ml Documented by: Thiamine HCl (Vitamin B1) [facility] Stop: 05/16/19 08:01 Last Admin: 05/14/19 09:31 Dose: 100 mg Documented by: Trazodone HCl (Desyrel) 50 mg PO QHS [facility] Last Admin: 05/13/19 21:20 Dose: 50 mg Documented by: Medical Necessity - Tobacco Use Smoking Status: Current every day smoker Tobacco Use: Cigarettes Assessment/Plan All Active Problems (Last Updated 05/13/19 @ 15:17 by Mary Sharp MD) Acute alcohol withdrawal (Acute) 1. Acute alcohol withdrawal * Patient's last drink was the seventh. Patient states that she normally drinks 15 beers per day * Current CIWA at 9, though this may be skewed downwards as patient is actively taking lorazepam * Continue to monitor for now * Patient states that she is to go to an inpatient program in [place], [place] on the and has an arrival time of 10 AM. States that she has to be out of here by 7:30 AM and was told by the emergency room physician as well as someone else that that would be feasible. I informed the patient that that discharge time is unlikely to happen due to the number of factors, including: Me actually evaluating the patient to assess to see if she is actually ready for discharge plus putting in discharge orders plus the nurses to do there part of the discharge assessment as well. I told patient that she should contact the program and inform them that she may not make it at the original time and to see if there would be capabilities for her to arrive later. I did inform her that if she is doing well on the , that she could be potentially discharged and then or even that she could leave AGAINST MEDICAL ADVICE before she is a formally evaluated by myself on the . I did tell her that if she does leave AGAINST MEDICAL ADVICE that she may be financially responsible for the cost of her hospitalization. Code Visit Inpatient E&M: 39580 Subs Hosp L2
--- NOTE | 2019-05-14 10:39 | NEWVISION ---
Patient has prescheduled admission into [facility] located in [place] immediately upon discharge. Patient to arrive by 10am, therefore needs talent acquisition relationship manager d/c. Patient's family to last picker.
[2019-05-14] MEDS: Dicyclomine 10 MG Capsule 20 MG PO (13:05)
[2019-05-14] MEDS: Ondansetron ODT 4 MG Tablet PO (13:06)
--- NOTE | 2019-05-14 15:06 | CHAPLAIN ---
Type of Pastoral Visit _x__ Initial Visit ___ Follow-up Visit ___ On-call Visit ___ General Patient Visit ___ Spiritual Assessment ___ Family Conference ___ Bereavement ___ Rapid Response ___ Code Blue ___ Other (describe below) Pastoral Care Referral From _x__ Patient ___ Family ___ Nurse ___ Physician ___ Electromechanical Equipment Tester ___ Assembler Handbags ___ Other (describe below) Sacrament/Intervention _x__ Active listening ___ Anointing ___ Confucianism ___ Bereavement ___ Communion _x__ Emmie exploration ___ _x__ Life review _x__ Prayer ___ Reconciliation ___ Sacrament of Sick _x__ Supportive presence ___ Wedding ___ Other (describe below) Pastoral Comments
--- NOTE | 2019-05-14 18:12 | NURSING ---
1430: Call placed to [facility] to find out if patient had to be there at 10 am on or if she was able to have a different time slot to be admitted as a discharge time was not able to be set per patient's physician. Per [facility] staff member, there is a process that the patient has to go through to get into the facility. The orientation class starts at 10 am and then they need to fill out an application and then have an interview if they still want to be a part of the program. The hospitality workers states that there is currently a waiting list as well. A call was then made to patient's niece, Yumiko, and she states that the patient and herself met with Susan (the Director of [facility]) and Carmen and they put her on the waiting list and told her that if she wants to go through the program then she would need to attend on at 10 am and she would have a bed available. A call was then placed back the [facility] x2 with no answer. Finally a message was left by this rewriter to call back so that we could clarify if the patient does, in fact, have a bed available on . Patient's niece was updated of this as well as Miracle from [facility] to follow up on this tomorrow.
[2019-05-14] MEDS: Methocarbamol 750 MG Tablet PO (19:52)
[2019-05-14] MEDS: hydrOXYzine PAM 25 MG Capsule 50 MG PO (21:56)
[2019-05-14] MEDS: Atorvastatin Calcium 80 MG Tablet PO (21:56)
[2019-05-15 02:14] VITALS: BP 126/77; PULSE 62; RESP 18; TEMP 36.8
[2019-05-15] MEDS: LORazepam 1 MG Tablet PO ×4 (02:15→21:58)
[2019-05-15 08:11] VITALS: BP 107/62; PULSE 76; RESP 18; TEMP 37
[2019-05-15] MEDS: Aspirin 81 MG TAB.CHEW PO (08:14)
[2019-05-15] MEDS: Thiamine Hydrochloride 100 MG Tablet PO (08:14)
[2019-05-15] MEDS: Multivitamins,Therapeutic Tablet 1 TABLET PO (08:14)
[2019-05-15] MEDS: Pantoprazole Sodium 20 MG Tablet PO (08:15)
[2019-05-15] MEDS: Folic Acid 1 MG Tablet PO (08:15)
[2019-05-15] MEDS: Lisinopril 20 MG Tablet PO (08:15)
[2019-05-15] MEDS: Enoxaparin 40 MG/0.4 ML Syringe SC (08:16)
--- NOTE | 2019-05-15 08:50 | NURSING ---
Spoke with Analisa Gregorio at [facility], aware of concerns of discharge timing tomorrow 05/16 and that pt needs to arrive in [facility] at 1000. According to the directions, with traffic it could be a [address] Analisa states that if patient could arrive by 11am, they will reserve her spot. Will notify Dr. Mcgowan and patient.
--- NOTE | 2019-05-15 09:16 | PCM.PN.HOSP ---
Patient Problems: Active and Suspected Problems (Last Updated 05/13/19 @ 15:17 by Mary Sharp MD) Acute alcohol withdrawal (Acute) Subjective: Feeling better: still with tremor, but [place], nausea improving. Vitals/I&O's: Vital Signs Temp Pulse Resp BP Pulse Ox 37.0 C 76 18 107/62 100 05/15/19 08:11 05/15/19 08:11 05/15/19 08:11 05/15/19 08:11 05/13/19 16:39 Oxygen Delivery Method Room Air Weight: 60.3 kg Body Mass Index (BMI) 23.5 Intake and Output for Last 24 Hours 05/13/19 05/14/19 05/15/19 23:59 23:59 23:59 Intake Total 2300 / 2300 1000 / 1000 Balance 2300 / 2300 1000 / 1000 General: Alert, No apparent distress HEENT: Atraumatic, Normocephalic Oral: Moist Mucosa, No Gingival or Mucosal Lesions/ Ulcerations Neck: No Nodes, Thyroid Normal Size and Texture Lungs: Clear to auscultation, Normal air movement, No rhonchi, No wheeze Cardiovascular: Regular rate, Regular Rhythm, Normal S1, Normal S2, No murmurs Abdomen: Bowel Sounds Present, Soft, Non Tender, Non-Distended, No Hepato-splenomegaly Extremities: No edema, No Calf Tenderness Skin: No rashes, No breakdown Musculoskeletal: No Tenderness to Palpation of Joints or Extremities, No Muscle Wasting Psych/Mental Status: Normal Affect, Appropriate Current Medications Acetaminophen (Tylenol) 500 mg PO Q4H PRN PRN PRN Reason: Temp > 100.4 F Aspirin (Aspirin, Baby) 81 mg PO DAILY@0800 [facility] Last Admin: 05/15/19 08:14 Dose: 81 mg Documented by: Atorvastatin Calcium (Lipitor) 80 mg PO QHS [facility] Last Admin: 05/14/19 21:56 Dose: 80 mg Documented by: Dicyclomine HCl (Bentyl) 20 mg PO Q6H PRN PRN PRN Reason: abdominal discomfort Last Admin: 05/14/19 13:05 Dose: 20 mg Documented by: Enoxaparin Sodium (Lovenox) 40 mg SC DAILY@1000 [facility] Last Admin: 05/15/19 08:16 Dose: 40 mg Documented by: Folic Acid (Folic Acid) 1 mg PO DAILYCM [facility] Stop: 05/16/19 08:01 Last Admin: 05/15/19 08:15 Dose: 1 mg Documented by: Hydroxyzine Pamoate (Vistaril Pamoate Capsule) 50 mg PO Q6H PRN PRN PRN Reason: Mild Anxiety (score 1/3) Last Admin: 05/14/19 21:56 Dose: 50 mg Documented by: Ibuprofen (Motrin) 600 mg PO Q8H PRN PRN PRN Reason: Mild-Moderate Pain (1-5/10) Last Admin: 05/13/19 17:15 Dose: 600 mg Documented by: Lisinopril (Zestril) 20 mg PO DAILY [facility] Last Admin: 05/15/19 08:15 Dose: 20 mg Documented by: Lorazepam (Ativan) 1 mg PO Q6H [facility]; Taper Stop: 05/16/19 21:59 Last Admin: 05/15/19 08:14 Dose: 1 mg Documented by: Methocarbamol (Methocarbamol) 750 mg PO Q6H PRN PRN PRN Reason: Muscle Aches Last Admin: 05/14/19 19:52 Dose: 750 mg Documented by: Multivitamins ([facility]itamin) [facility] Last Admin: 05/15/19 08:14 Dose: 1 tablet Documented by: Ondansetron HCl (Zofran Odt) 4 mg PO Q6H PRN PRN PRN Reason: NAUSEA Last Admin: 05/14/19 13:06 Dose: 4 mg Documented by: Pantoprazole Sodium (Protonix) 20 mg PO DAILY [facility] Last Admin: 05/15/19 08:15 Dose: 20 mg Documented by: Sodium Chloride () 10 - 40 ml IV UD PRN PRN Reason: SALINE FLUSH Last Admin: 05/14/19 21:56 Dose: 10 ml Documented by: Thiamine HCl (Vitamin B1) [facility] Stop: 05/16/19 08:01 Last Admin: 05/15/19 08:14 Dose: 100 mg Documented by: Trazodone HCl (Desyrel) 50 mg PO QHS [facility] Last Admin: 05/14/19 21:54 Dose: Not Given Documented by: Medical Necessity - Tobacco Use Smoking Status: Current every day smoker Tobacco Use: Cigarettes Assessment/Plan All Active Problems (Last Updated 05/13/19 @ 15:17 by Mary Sharp MD) Acute alcohol withdrawal (Acute) 1. Acute alcohol withdrawal Patient's last drink was the seventh. Patient states that she normally drinks 15 beers per day Current CIWA at 12, though this may be skewed downwards as patient is actively taking lorazepam Continue to monitor for now Patient states that she is to go to an inpatient program in [place], [place] on the and has an arrival time of 10 AM. States that she has to be out of here by 7:30 AM and was told by the emergency room physician as well as someone else that that would be feasible. I informed the patient that that discharge time is unlikely to happen due to the number of factors, including: Me actually evaluating the patient to assess to see if she is actually ready for discharge plus putting in discharge orders plus the nurses to do there part of the discharge assessment as well. I told patient that she should contact the program and inform them that she may not make it at the original time and to see if there would be capabilities for her to arrive later. I did inform her that if she is doing well on the , that she could be potentially discharged and then or even that she could leave AGAINST MEDICAL ADVICE before she is a formally evaluated by myself on the . I did tell her that if she does leave AGAINST MEDICAL ADVICE that she may be financially responsible for the cost of her hospitalization. [facility] and would be able to accept the patient at 11am on the . Latonya with patient about these developments and stated that we will try to prioritize getting her out as soon as possible but she would need to be medically ready for discharge. Today, patient is not medically ready she is still having tremors and other symptoms associated with her alcohol withdrawal. Did state that it is possible which she may get worse and if that the case and I would need to keep her urine further in the hospital until she is more medically stable. Though present she will be better enough so that she can be discharged. Patient expressed understanding. Code Visit Inpatient E&M: 84495 Subs Hosp L2
[2019-05-15] MEDS: Ondansetron ODT 4 MG Tablet PO (09:42)
[2019-05-15] MEDS: Ibuprofen 600 MG Tablet PO (09:47)
--- NOTE | 2019-05-15 10:53 | NURSING ---
Pt's niece Yumiko called in re: discharge plan for tomorrow. This nurse asked pt for permission to speak to Yumiko, as she is not listed on pt's chart. Patient gave permission. Yumiko aware that I spoke with rehab facility and that she will still have a bed if they are able to make it there by 1100. Yumiko aware that the MD will do what he can to get her discharged as early as possible, but could not make a promise to get her out of here by a specific time.
[2019-05-15 13:53] VITALS: BP 127/65; PULSE 69; RESP 18; TEMP 36.6
[2019-05-15] MEDS: Acetaminophen 500 MG Tablet PO (13:55)
[2019-05-15] MEDS: hydrOXYzine PAM 25 MG Capsule 50 MG PO (16:44)
[2019-05-15 21:51] VITALS: BP 127/80; PULSE 68; RESP 18; TEMP 36.5
[2019-05-15] MEDS: Atorvastatin Calcium 80 MG Tablet PO (21:58)
[2019-05-16 05:58] VITALS: BP 124/66; PULSE 86; RESP 16; TEMP 37
[2019-05-16] MEDS: LORazepam 1 MG Tablet PO (06:04)
[2019-05-16] MEDS: Aspirin 81 MG TAB.CHEW PO (06:05)
[2019-05-16] MEDS: Thiamine Hydrochloride 100 MG Tablet PO (06:05)
[2019-05-16] MEDS: Folic Acid 1 MG Tablet PO (06:05)
[2019-05-16] MEDS: Lisinopril 20 MG Tablet PO (06:05)
[2019-05-16] MEDS: Multivitamins,Therapeutic Tablet 1 TABLET PO (06:05)
[2019-05-16] MEDS: Pantoprazole Sodium 20 MG Tablet PO (06:06)
--- NOTE | 2019-05-16 07:25 | DCINST_ITS ---
- Discharge Diagnoses Current Active Problems: Current Active and Chronic Problems (Last Updated 05/13/19 @ 15:17 by Mary Sharp MD) Acute alcohol withdrawal (Acute) Alcohol abuse (Chronic) You will use the following diet at home:: No restrictions Your food should be the consistency of: Regular Discharge Activity: Return to Normal Activity Instructions: Alcohol Withdrawal Allergies/Adverse Reactions: Allergies cortisone Adverse Reaction (Severe, Verified 05/13/19 14:15) Rash simvastatin Adverse Reaction (Verified 05/13/19 15:48) Myalgias Medications to take at Discharge Aspirin [Aspirin, Baby] 81 mg PO DAILY@0800 #90 tab.chew 01/15/14 cyanocobalamin (vit B-12) 500 mcg tablet 500 mcg PO DAILY 01/29/18 lisinopril 20 mg tablet 20 mg PO DAILY #90 tab 05/02/19 Atorvastatin Calcium 80 mg PO QHS 05/13/19 Omeprazole 20 mg PO DAILY 05/13/19 Multivitamins,Therapeutic [Multivitamin] 1 tab PO DAILYCM tab 05/16/19 Primary Care Physician: Ruben Ricks MD [Primary Care Provider] - 3-5 Days Test Results: Test results from this visit will be discussed in further detail at your follow- up appointment, if applicable. Please Follow Up With: [facility] When: Today Proposed Discharge Date: 05/16/19
--- NOTE | 2019-05-16 07:27 | PCM.DC.SUM ---
Discharge Date and Diagnosis - Problem List Patient Problems: Active and Suspected Problems (Last Updated 05/13/19 @ 15:17 by Mary Sharp MD) Acute alcohol withdrawal (Acute) Date of Admission: 05/13/19 Date of Discharge: 05/16/19 - Primary Discharge Diagnosis Active and Suspected Problems (Last Updated 05/13/19 @ 15:17 by Mary Sharp MD) Acute alcohol withdrawal (Acute) - Secondary Discharge Diagnosis Chronic Problems (Last Updated 05/13/19 @ 15:17 by Mary Sharp MD) Alcohol abuse (Chronic) Arteriosclerotic heart disease (ASHD) (Chronic) PTCA of LAD February 2007 Hyperlipidemia (Chronic) Nicotine abuse (Chronic) Hypertension (Chronic) Atherosclerotic heart disease [place] coronary artery w/angina pectoris (Chronic) Presence of stent in coronary artery (Chronic) PTCA of LAD February 2007; terminal carman use of drug (Chronic) Hospital Course and Treatment Operations: None Procedures: None Summary of Care Provided: The patient is a 63 year old F Zentz seek treatment for acute alcohol withdrawal. Patient was started on medical stabilization protocol with lorazepam. Patient did fairly well and today, patient was evaluated and her alcohol withdrawal symptoms are practically now. Patient will be going [facility] for continued addiction management. Patient will not be driving herself to [place] but will be having someone pick her up from the hospital to take her there. [] Patient Problems: Active and Suspected Problems (Last Updated 05/13/19 @ 15:17 by Mary Sharp MD) Acute alcohol withdrawal (Acute) - Physical Exam General: Alert, No apparent distress HEENT: Atraumatic, Normocephalic Oral: Moist Mucosa, No Gingival or Mucosal Lesions/ Ulcerations Comment: No tremors Vital Signs Temp Pulse Resp BP Pulse Ox 37.0 C 86 16 124/66 H 100 05/16/19 05:58 05/16/19 05:58 05/16/19 05:58 05/16/19 05:58 05/13/19 16:39 Oxygen Delivery Method Room Air Weight: 60.3 kg Body Mass Index (BMI) 23.5 Intake and Output for Last 24 Hours 05/14/19 05/15/19 05/16/19 23:59 23:59 23:59 Intake Total 2300 / 2300 3100 / 3100 100 / 100 Balance 2300 / 2300 3100 / 3100 100 / 100 Discharge Diet: No Restrictions Discharge Activity: Return to Normal Activity Home Medications: Medications to take at Discharge Aspirin [Aspirin, Baby] 81 mg PO DAILY@0800 #90 tab.chew 01/15/14 cyanocobalamin (vit B-12) 500 mcg tablet 500 mcg PO DAILY 01/29/18 lisinopril 20 mg tablet 20 mg PO DAILY #90 tab 05/02/19 Atorvastatin Calcium 80 mg PO QHS 05/13/19 Omeprazole 20 mg PO DAILY 05/13/19 Multivitamins,Therapeutic [Multivitamin] 1 tab PO DAILYCM tab 05/16/19 Primary Care Physician: Ruben Ricks MD [Primary Care Provider] - 3-5 Days Please Follow Up With: [facility] When: Today Patient Instructions: Alcohol Withdrawal Disposition: Home Minutes spent on discharge:: 24 Patient Condition:: Good Medical Necessity - Tobacco Use Smoking Status: Current every day smoker Tobacco Use: Cigarettes Meaningful Use Info Meaningful Use Diagnoses (Choose all that apply): None applicable Code Visit Inpatient E&M: 93162 Disch Hosp
[2019-05-16 07:43] VITALS: BP 128/76; PULSE 76; RESP 18; TEMP 36.9; O2SAT 98
--- NOTE | 2019-05-16 07:49 | NURSING ---
Pt refuses to have breakfast. Denies any distress at this time. Family into transport pt to inpatient facility.
== END 2019-05-16 08:05 | disposition home or self-care (01) | DRG 775 ==
LOC: ED 15:23 → MS2 15:50
PROVIDERS: Admitting Provider Hospitalist; Emergency Provider Emergency Medicine; Family Provider Family Medicine; PCP Family Medicine; Referring Provider Hospitalist
DX: F10.239 Alcohol dependence with withdrawal, unspecified (principal); I25.10 Atherosclerotic heart disease of native coronary artery without angina pectoris; Z95.5 Presence of coronary angioplasty implant and graft; E78.5 Hyperlipidemia, unspecified; I10 Essential (primary) hypertension; Y90.0 Blood alcohol level of less than 20 mg/100 ml; F17.210 Nicotine dependence, cigarettes, uncomplicated
CPT/HCPCS: 80053; 80307; 80320; 81001; 83690; 85025; 99285; A4216; G0480